=== PATIENT | male | born 1980 | race Caucasian/White ===

== ENCOUNTER → 2022-08-28 11:19 | Emergency (ER) | payer SELFPAY ==
--- NOTE | 2022-08-28 11:20 | NUR ---
pt left prior to entering ER from [facility]. pt left prior to triage.
== END | disposition left against medical advice (07) ==
LOC: MED 11:19
DX: Z76.1 Encounter for health supervision and care of foundling (principal); T65.91XA Toxic effect of unspecified substance, accidental (unintentional), initial encounter; Y92.89 Other specified places as the place of occurrence of the external cause; Z53.21 Procedure and treatment not carried out due to patient leaving prior to being seen by health care provider